=== PATIENT | male | born 1965 | race Caucasian/White ===

== ENCOUNTER → 2017-02-05 | Outpatient (CLI) | payer OTHER ==
[2017-02-05 10:36] LABS: BUN 23 mg/dL (7-18); GFR (ESTIMATED) 88 ML/MIN (>60); PROSTATE-SPECIFIC AG SCREEEN 3.2 ng/mL (0.0-4.0)
== END ==
LOC: LAB 08:08
PROVIDERS: Internal Medicine
DX: I10 Essential (primary) hypertension (principal); E78.5 Hyperlipidemia, unspecified; R39.12 Poor urinary stream
CPT/HCPCS: G0103